=== PATIENT | male | born 1975 | race Caucasian/White ===

== ENCOUNTER 2016-11-30 20:30 | Outpatient (CLI) | payer BC | END 2016-12-01 06:45 | disposition home or self-care (01) | LOC: SLEEP 20:30 | PROVIDERS: ATTEND Nurse Practitioner | DX: G47.33 Obstructive sleep apnea (adult) (pediatric) (principal) | CPT/HCPCS: 95811 ==

== ENCOUNTER → 2017-06-08 | Outpatient (CLI) | payer BC ==
[2017-06-08 15:22] LABS: BLOOD UREA NITROGEN 10 MG/DL (7-18); BUN/CREATININE RATIO 12; CREATININE SERUM 0.85 MG/DL (0.60-1.30); GFR ESTIMATED > 60
--- NOTE | 2017-06-08 17:05 | Diagnostic Imaging Report ---
PROCEDURE: CT right upper extremity without contrast. TECHNIQUE: Multiple contiguous axial images were obtained through the right upper extremity without the use of intravenous contrast. Sagittal and coronal reformations were then performed. INDICATION: Further evaluation of elbow fracture. COMPARISON: None available. FINDINGS: There is a moderately comminuted fracture of the coronoid process of the proximal ulna. The dominant fracture is an axial oriented fracture through the base of the coronoid process with approximately 6 mm of fracture gap diastasis. There are a few cortical fragments from the articular surface displaced into the fracture gap. At the level of intra-articular extension into the ulnotrochlear joint, there is also 6 mm fracture gap diastasis. A moderate-sized elbow joint effusion is present, which is likely posttraumatic. There are numerous small ossific fragments in the posteromedial aspect of the joint space, which are likely displaced comminuted fracture fragments from the proximal ulnar fracture. No fracture of the radial head or proximal radius. By CT, the biceps and brachialis tendons appear intact. Distal triceps is also intact. IMPRESSION: 1. Comminuted fracture of the coronoid process of the proximal ulna which has a dominant axial oriented fracture component that has intra-articular extension into the elbow joint. There are numerous small displaced comminuted fracture fragments, some of which are located within the fracture gap while others are located throughout the joint. 2. Moderate to large elbow joint effusion. Dictated by: Dictated on workstation # [id number]
== END ==
LOC: RAD 14:48
PROVIDERS: ATTEND Orthopaedic Surgery
DX: S52.041A Displaced fracture of coronoid process of right ulna, initial encounter for closed fracture (principal); X58.XXXA Exposure to other specified factors, initial encounter; Y99.8 Other external cause status
CPT/HCPCS: 36415; 73200; 82565; 84520

== ENCOUNTER 2018-07-23 22:33 | Emergency (ER) | payer BC, OTHER ==
[~2018-07-23] VITALS: Ht 182.9 cm; Wt 113.4 kg
--- OUTSIDE RECORDS SUMMARY | 2018-07-23 22:39 | XMS REPORT ---
Author Author GISELLE STACY [facility] Address [address] [place] [address] Care Team Providers Care Instrumental Teacher Name Role Phone GISELLE STACY Unavailable PROBLEMS Type Condition ICD9-CM Code [id number] Code Onset Dates Condition Status SNOMED Code Problem Generalized anxiety disorder F41.1 Active [id number] ALLERGIES No Information ENCOUNTERS Encounter Location Date Diagnosis [facility] [id number] [address] Nov, Generalized anxiety disorder F41.1 [facility] [id number], [place] [address] Oct, Generalized anxiety disorder F41.1 [facility] [id number], [place] [address] Oct, 2017 Generalized anxiety disorder F41.1 IMMUNIZATIONS No Known Immunizations SOCIAL HISTORY Never Assessed REASON FOR VISIT intake PLAN OF CARE Activity Details Follow Up 2 Weeks Reason: F/U VITAL SIGNS MEDICATIONS Unknown Medications RESULTS No Results PROCEDURES Procedure Date Ordered Result Body Site Psych diagnostic evaluation, new patient Nov 08, 2017 INSTRUCTIONS MEDICATIONS ADMINISTERED No Known Medications
--- OUTSIDE RECORDS SUMMARY | 2018-07-23 22:39 | XMS REPORT ---
Author Author GISELLE STACY Organization [facility] Address [address] [place] [address] Care Team Providers Care Golf Manager Name Role Phone GISELLE STACY Unavailable PROBLEMS Type Condition ICD9-CM Code [id number] Code Onset Dates Condition Status SNOMED Code Problem Generalized anxiety disorder F41.1 Active [id number] ALLERGIES No Information ENCOUNTERS Encounter Location Date Diagnosis [facility] [id number], [place] [address] Nov, Generalized anxiety disorder F41.1 [facility] [id number], [place] [address] Oct, Generalized anxiety disorder F41.1 [facility] [id number], [place] [address] Oct, Generalized anxiety disorder F41.1 IMMUNIZATIONS No Known Immunizations SOCIAL HISTORY Never Assessed REASON FOR VISIT BH f/u PLAN OF CARE Activity Details Follow Up Next available Reason: F/U VITAL SIGNS MEDICATIONS Unknown Medications RESULTS No Results PROCEDURES Procedure Date Ordered Result Body Site Psychotherapy, patient &/family, 45 minutes, established patient December 08, 2017 INSTRUCTIONS MEDICATIONS ADMINISTERED No Known Medications
[2018-07-23] MEDS ORDERED: TETANUS,DIPTH,PERTUSS P/F (BOOSTRIX) 0.5 ML VIAL IM ONE (22:45)
--- NOTE | 2018-07-23 23:05 | ED Upper Extremity ---
General Stated Complaint: R ARM LAC Source: patient Exam Limitations: no limitations History of Present Illness Date Seen by Provider: Jul 23, 2018 Time Seen by Provider: 23:01 Initial Comments To ER by his father from home by private vehicle with reports of a laceration to the dorsal aspect of the right arm after punching the window in his garage while intoxicated about 3-4 hours ago. He's had several beers tonight. Onset: this evening Severity: moderate Pain/Injury Location: right forearm Method of Injury: direct blow Allergies and Home Medications Allergies Coded Allergies: ibuprofen (Verified Allergy, Unknown, 07/23/18) Patient Home Medication List Home Medication List Reviewed: Yes Review of Systems Constitutional: see HPI EENTM: see HPI Respiratory: no symptoms reported Cardiovascular: no symptoms reported Genitourinary: no symptoms reported Musculoskeletal: see HPI Skin: see HPI Psychiatric/Neurological: No Symptoms Reported Past Pfumuho-Jbohad-Vkpkhc Hx Patient Social History Recent Foreign Travel: No Contact w/Someone Who Travel: No Physical Exam Vital Signs Capillary Refill : Height, Weight, BMI Height: '" Weight: lbs. oz. kg; BMI Method: General Appearance: WD/WN, no apparent distress HEENT: PERRL/EOMI, normal ENT inspection Neck: non-tender, full range of motion Respiratory: no respiratory distress, no accessory muscle use Shoulder: normal inspection, non-tender Elbow/Forearm: Right, pain, soft tissue tenderness (there are 2 separate lacerations to the dorsal radial side of the right forearm with a large surrounding hematoma. There is a small amount of arterial or pulsatile bleeding from the wound edge to the more ulnar laceration. One laceration measures 2 cm and is down to the muscle layer, the second laceration measures 4 cm and is down to the muscle fascia. He is still able to fully extend each of his fingers and his hand at the wrist.) Procedures/Interventions Wound Location: Upper Extremities Wound Length (cm): 6 Wound's Depth, Shape: into muscle Wound Explored: clean Irrigated w/ Saline (ccs): 500 Anesthesia: 1% Lidocaine Volume Anesthetic (ccs): 5 Suture: Prolene Suture Size: 4-0 Number of Sutures: 10 Layer Closure?: 1 Number Deep Layer Sutures: 0 Progress To several lacerations were anesthetized with a total of 5 mL of 1% lidocaine without epinephrine. Wound then scrubbed with chlorhexidine/saline solution then irrigated with 500 mL of the same. No foreign bodies were visualized or palpated in either of the wounds. Skin edges were then closed with a total of 10 simple interrupted sutures size 4-0 Prolene. Progress/Results/Core Measures Results/Orders My Orders Orders - ALAINA MOON APRN Forearm, Right, 2 Views (07/23/18 23:01) Cephalexin Capsule (Keflex Capsule) (07/23/18 23:15) Departure Communication (Admissions) Discharged home in the care of his father. Impression Primary Impression: Laceration of right forearm Qualified Codes: S51.811A - Laceration without foreign body of right forearm, initial encounter Disposition: HOME, SELF-CARE Condition: Stable Departure-Patient Inst. Decision time for Depature: 23:07 Referrals: STACI STOCK BRETT D DO JENKINS, XAVIER M MD KIDO, TAKAAKI MD TANG, WEN-CHOU MD (PCP/Family) Primary Care Physician Patient Instructions: Laceration Repair With Stitches (DC) Add. Discharge Instructions: 1. Return to the emergency room for any concerns 2. Follow-up with your doctor next week 3. Return to the emergency room in about 10 days to have the stitches removed. Take antibiotics as directed. Call one of the surgeons listed to make an appointment to be seen for follow-up. Scripts Cephalexin (Keflex) 500 Mg Capsule 500 MG PO TID, #15 CAP Prov: ALAINA MOON APRN 07/23/18 Images Extremities-Upper 1 - 2 - ALAINA MOON APRN Jul 23, 2018 23:05
[2018-07-23] MEDS ORDERED: CEPH-507 PO (23:08)
[2018-07-23] MEDS ORDERED: CEPHALEXIN 250 MG (KEFLEX) CAP PO ONE (23:15)
[2018-07-23 23:30] VITALS: BP 117/77
--- NOTE | 2018-07-24 06:20 | Diagnostic Imaging Report ---
EXAMINATION: Right forearm INDICATION: Laceration, check for foreign body. AP and lateral views were obtained. The previous CT right upper extremity exam performed on 06/08/2017 noted a comminuted fracture of the coronoid process of the proximal ulna. In the interval since the prior exam the patient has undergone a surgical procedure. There is now an orthopedic fixation screw traversing the proximal ulna. The main fracture fragments appear to be in good position. There is no acute fracture, dislocation or bony abnormality appreciated. There is soft tissue edema along the volar aspect of the proximal forearm. There is no radiopaque foreign body identified, however. IMPRESSION: 1. There is no evidence for an acute bony abnormality or for a radiopaque foreign body. 2. There are postsurgical changes involving the proximal ulna. Dictated by: Dictated on workstation # [id number]
== END 2018-07-23 23:30 | disposition home or self-care (01) ==
LOC: EDUNIT# 22:33 → ER 22:34
DX: S51.811A Laceration without foreign body of right forearm, initial encounter (principal); F10.10 Alcohol abuse, uncomplicated; Z88.6 Allergy status to analgesic agent; W22.09XA Striking against other stationary object, initial encounter
CPT/HCPCS: 64450; 73090